=== PATIENT | female | born 1975 | race African-American/Black ===

== ENCOUNTER 2024-12-29 04:23 | Observation (INO) | payer OTHER, SELFPAY ==
[2024-12-28] VITALS (19 sets, daily range): BP systolic 111–149; BP diastolic 62–97; BMI 33.1
[2024-12-28 17:35] LABS: Hematocrit 43.4 % (37.0-47.0); Hemoglobin 14.9 g/dL (12.0-16.0); Mean Corp Hgb Conc. 34.3 g/dL (33.0-37.0); Mean Corpuscular Volume 103.3 fL (81.0-99.0); Nucleated Red Blood Cells % 0.3 %; Platelet Count 156 10^3/uL (130-400); Red Cell Dist. Width 16.8 % (11.5-14.5)
[2024-12-28 17:39] LABS: Glucose - Point of Care 134 mg/dl (70-99)
[2024-12-28 17:46] LABS: INR 1.34; PT 16.8 Sec (11.4-14.6)
[2024-12-28 17:47] LABS: APTT 28.2 Sec (23.4-35.0)
[2024-12-28] MEDS: NSS 1000 IV (18:00)
[2024-12-28 18:08] LABS: Urine Character Clear (Clear)
[2024-12-28 18:24] LABS: Urine Red Blood Cell 0-2 /HPF (0-2); Urine Urothelial Cell 0-2 /LPF (FEW)
[2024-12-28 19:45] LABS: Beta HCG Quantitative < 2.39 mIU/ml
[2024-12-28 20:01] LABS: ALT (SGPT) 39 U/L (0-35); AST (SGOT) 125 U/L (14-36); Acetaminophen < 10 ug/ml (10-30); Albumin 4.1 g/dl (3.5-5.0); Alkaline Phosphatase 97 U/L (38-126); Blood Urea Nitrogen 2 mg/dl (7-17); Calcium 7.6 mg/dl (8.4-10.2); Carbon Dioxide 34 mmol/L (22-30); Chloride 103 mmol/L (98-107); Estimated Creatinine Clearance 118 ml/min; Glucose 93 mg/dl (70-99); Potassium 3.4 mmol/L (3.5-5.1); Salicylate < 1.0 mg/dl (2.0-20.0); Sodium 145 mmol/L (135-145); Total Protein 7.6 g/dl (6.3-8.2); eGFR > 60.00
[2024-12-29] VITALS: BP 131/81
[2024-12-29 01:00] VITALS: BP 137/91
[2024-12-29 02:00] VITALS: BP 124/88
--- NOTE | 2024-12-29 02:13 | ED.GENMED ---
History of Present Illness
General
Chief Complaint: Overdose Unintentional
Source: patient, family and ambulance crew
Exam Limitations: altered mental status
Time Seen by Provider: 12/28/24 17:13
Nursing documentation reviewed up to this point in time: agreed with
History of Present Illness
History of Present Illness:
Note:
CHIEF COMPLAINT(S)
Altered mental status and potential head injury.
HISTORY OF PRESENT ILLNESS
The patient is a 49-year-old female who presented with altered mental status. There is a history of alcohol consumption today, and the patient reported consuming a significant amount, though the exact quantity is unspecified. Additionally, the
patient admitted to using a THC gummy earlier today. The patients mental status appears altered, possibly related to substance use. When questioned about a potential head injury, the patient acknowledged that she might have hit her head but was
uncertain about the details. There is no history of diabetes. The patients past medical history includes brain surgery, the specifics of which are unclear, but it is noted that cancer was not involved.
ADDITIONAL HISTORY OBTAINED FROM SOURCES OTHER THAN THE PATIENT
The EMS team reported that the patients phone and wallet were left at her residence. It remains uncertain who initiated the 911 call. According to the patient, a 'Jaycob' was mentioned, but no further details about this individual were provided.
SOCIAL DETERMINANTS AFFECTING HEALTH
The patient has reported the use of both alcohol and THC gummies, which may have influenced her current condition.
PHYSICAL EXAM
General: Alert, no acute distress.
Skin: Warm, dry.
Head: Normocephalic, atraumatic, though the patient suggests a potential head injury.
Neck: Supple, trachea midline.
Eye, Ears, Nose, Mouth and Throat: Oral mucosa moist.
Cardiovascular: Normal peripheral perfusion, no edema.
Respiratory: Respirations are non-labored.
Gastrointestinal: Abdomen nondistended.
Back: Normal range of motion, normal alignment.
Musculoskeletal: Normal range of motion, normal strength.
Neurological: Alert and oriented to person, place, time, and situation, no focal neurological deficit observed, though some altered mental status noted.
Psychiatric: Cooperative, appropriate mood & affect.
PLAN
Further evaluation of the patients altered mental status, potentially related to substance use, is warranted. Consider imaging to assess for possible head injury. Monitor vital signs and re-evaluate mental status closely.
DIFFERENTIAL DIAGNOSIS
The Differential Diagnosis includes, in no particular order and is not limited to:
1. Alcohol intoxication
2. THC intoxication
3. Substance-induced delirium
4. Traumatic brain injury
5. Concussion
6. Hypoglycemia
7. Electrolyte imbalance
8. Infection (e.g., urinary tract infection, pneumonia)
9. Stroke
10. Seizure
CARE-UPDATE
12/28/24 - 20:22
CT scan of the head indicates a prior left partial craniotomy with left parietal encephalomalacia and adjacent dural thickening. No signs of acute intracranial abnormalities were observed.
CARE-UPDATE
12/28/24 - 21:22
Patient experiences persistent desaturation when not supported by supplemental oxygen; observation to continue.
Disposition:
SUMMARY OF ENCOUNTER
A 49-year-old female presented to the emergency department with altered mental status and potential head injury, likely due to substance use including THC gummies and alcohol consumption. She consumed two THC gummies, whereas the instructions were
to consume only one-quarter of a gummy, and a significant, unspecified amount of alcohol. The patients mental status has improved to alert and oriented, and it appears the altered state is associated with substance-induced effects.
DISPOSITION
Discharge to home.
ASSESSMENT
Acute THC overdose and alcohol intoxication.
PLAN
The patient will be discharged home with instructions to avoid further substance use and monitor symptoms.
MEDICATION RECONCILIATION
None administered or prescribed during the visit.
MEDICAL DECISION MAKING
-Complexity of Data Reviewed: Chronic conditions affecting care include the patient�s history of brain surgery and potential head injury. DDx: Alcohol intoxication, THC intoxication, substance-induced delirium, traumatic brain injury, concussion,
hypoglycemia, electrolyte imbalance, infection, stroke, seizure.
-Data:
Category 2
Clinical information was obtained from an independent historian, as the EMS team reported details of the patient�s situation, including leaving her phone and wallet at home.
-Risk: Prescription medication was discussed but not prescribed due to the improvement in the patient�s condition and discharge plan.
DIAGNOSIS
1. Acute THC overdose - ICD-10 code T40.7X1A
2. Alcohol intoxication - ICD-10 code F10.129
Review of Systems
Review of Systems
Allergies reviewed?: Yes
All Other Systems: ROS reviewed and negative except as documented in HPI and ROS
Phy Exam
General Physical Exam
General Presentation: mild distress
General age: appears stated age
General Skin: warm
General Habitus: normal
General Mental: alert
General Hydration: appears well hydrated
ENT Exam
ENT Exam: EOMI, pharynx normal, neck supple and normocephalic
Eye Exam
Eye Exam: PERRL, cornea clear and conjunctiva normal
Cardiovascular Exam
Cardiovascular Exam: regular rate/rhythm
Pulmonary Exam
Pulmonary Exam: lungs clear and no respiratory distress
Oxygen Status: oxygen 2 liters via NC
Gastrointestinal Exam
Gastrointestinal Exam: normal bowel sounds, non tender, soft, no organomegaly, no pulsatile mass and non distended
Neurological Exam
Neurological Exam: alert and oriented x3 ( at time of disposition she is awake alert and oriented x 3. She has gradually improved throughout her stay here in the ER)
Musculoskeletal Exam
Musculoskeletal Exam: full ROM and neck pain
Skin Exam
Skin Exam: normal color and warm/dry
Psychiatric Exam
Psychiatric Exam: normal mood/affect
Course
Orders/Labs/Results
Orders:
Orders
12/28/24 17:13
CT Head W/o Iv Contrast Urgent
Comment:
Reason For Exam: found unresponsive, poss hx of brain surg, OD
12/28/24 17:14
Bedside Glucose- Treatment ONCE
0.9% Sodium Chloride 1000 ml [Nss] 1,000 ml IV BOLUS
Test Result ONCE
12/28/24 17:18
Complete Blood Count/With Diff Urgent
PTT Urgent
Prothrombin Time Urgent
12/28/24 18:01
Fentanyl, Urine Urgent
Urinalysis Reflex To Culture Urgent
Date Specimen was Collected: 12/28/24
Time Specimen was Collected: 17:59
Urine Drug Abuse Screen Urgent
Date Specimen was Collected: 12/28/24
Time Specimen was Collected: 17:59
Urine Microscopic Reflex Cult Urgent
12/28/24 18:49
Beta HCG Quantitative Urgent
12/28/24 19:33
Acetaminophen Urgent
Alcohol Urgent
Comprehensive Metabolic Panel Urgent
Salicylate Urgent
12/29/24 02:37
CR Chest - 2 Views Urgent
Comment:
Reason For Exam: dyspnea
Abnormal Lab Results
12/28/24 12/28/24 12/28/24
17:18 17:38 18:01
MCV 103.3 H fL
(81.0-99.0)
MCH 35.5 H pg
(27.0-31.0)
RDW 16.8 H %
(11.5-14.5)
PT 16.8 H Sec
(11.4-14.6)
Potassium
Carbon Dioxide
BUN
Calcium
AST
ALT
Urine Albumin (Reflex) 2+ A
(Neg - Trace)
Salicylates
Acetaminophen
U Benzodiazepines Scrn Positive H
(Negative)
U Marijuana (THC) Screen Positive H
(Negative)
POC Glucose 134 H mg/dl
(70-99)
12/28/24
19:33
MCV
MCH
RDW
PT
Potassium 3.4 L mmol/L
(3.5-5.1)
Carbon Dioxide 34 H mmol/L
(22-30)
BUN 2 L mg/dl
(7-17)
Calcium 7.6 L mg/dl
(8.4-10.2)
AST 125 H U/L
(14-36)
ALT 39 H U/L
(0-35)
Urine Albumin (Reflex)
Salicylates < 1.0 L mg/dl
(2.0-20.0)
Acetaminophen < 10 L ug/ml
(10-30)
U Benzodiazepines Scrn
U Marijuana (THC) Screen
POC Glucose
12/28/24 17:18
12/28/24 19:33
Vital Signs
Initial and Last Documented VS:
Initial Vital Signs
Temp Pulse Resp BP Pulse Ox
97.5 F 89 15 123/97 67
12/28/24 17:13 12/28/24 17:13 12/28/24 17:13 12/28/24 17:13 12/28/24 17:13
Last Documented Vital Signs
Temp Pulse Resp BP Pulse Ox
97.5 F 60 14 137/91 95
12/28/24 17:13 12/29/24 01:15 12/29/24 01:15 12/29/24 01:00 12/29/24 02:17
*Radiology
Radiology exam reviewed: radiology read reviewed
*Pulse Oximetry
SaO2: 95
Nasal Cannula flow liters per minute: 4
Oxygen Mode of Delivery: Room air
Patient hypoxic: yes ( on room air)
*Critical Care Note
Total Time (30-74mins, 75-104mins- exclusive of procedures): 32 ( Critical care statement: A total of 32 minutes of critical care time was provided for this patient. This time is separate from time utilized to perform the aforementioned documented
procedures. Aggregate critical care time includes only time during which I was engaged in work direct)
Update Note
Update Note:
12/29/2024 0213 AM: Patient is awake alert and oriented. Will ambulate
12/29/2024 0240 AM: Patient still awake alert and oriented. After ambulation. Her oxygen level has decreased. She still requires supplemental O2 to maintain an SpO2 greater than 92%. Will admit to the hospitalist service after x-ray.
ED Attending Note
-
Portions of this chart may have been created with voice recognition software.� Occasional wrong word or��sound alike� substitutions may have occurred due to the inherent limitations of voice recognition software.
Discharge Plan
Departure
Patient Disposition: Admit
Date of Disposition: 12/29/24
Time of Disposition: 02:17
Admit to: Telemetry
Presentation/result/management discussed w/ accepting MD/DO: Hospitalist
Patient with high blood pressure during this ER visit?: Yes
Condition: Good
Discharge Problem:
THC overdose, Alcohol use, Accidental overdose, Acute dyspnea
Instructions: Accidental Overdose (DC), BLOOD PRESSURE
Referrals:
[facility] [Outside]
Alfredito Masters MD [Family Provider, Family Practice]
Activity Restrictions/Additional Instructions:
Thank You for choosing [facility].
It was a pleasure meeting you and taking part in your care. We hope for your continued healing and wellness.
Please read discharge instructions in their entirety. However, they are for general education and may not describe your exact diagnosis at discharge. Information on your ER visit and medical conditions were discussed with you along with appropriate
follow up information...
If indicated, please take your medications as instructed and indicated on discharge paperwork.
Please schedule a follow up appointment as directed. Call to schedule an appointment
Please return to the emergency department with ANY change in, persisting, or worsening of symptoms. If any of your symptoms do not improve, or persist, or become more severe within 6-12 hours, please return to the emergency department for further
care.
Please return to the emergency department if you develop a headache, neck pain/stiffness, fever greater than 100.4F, chest pain, shortness of breath, persistent nausea, vomiting, slurred speech, difficulty walking, numbness/tingling, weakness, signs
of infection or any other symptoms that are worrisome to you.
If you have any questions or concerns please do not hesitate to call the Hospital at
Interventions
Interventions:
*Risk Screen - Suicide Last Done: 12/28/24 17:28
*General Assessment Last Done: 12/28/24 17:27
*Neglect/Abuse Screening Last Done: 12/28/24 17:28
*ED- Fall Risk Assessment Last Done: 12/28/24 17:27
*ED COVID-19 Vaccine History Last Done: 12/28/24 17:27
ED- Cardiac Assessment Last Done: 12/28/24 17:28
ED- Neurological Assessment Last Done: 12/28/24 17:28
ED-Psychological Assessment Last Done: 12/28/24 17:28
ED- Pulmonary Assessment Last Done: 12/28/24 17:28
Discharge Date and Time
Print Language: FRENCH
--- NOTE | 2024-12-29 03:57 | HPS.HSE ---
Family Physician
-
Family Physician: Alfredito Masters MD
Chief Complaint
-
Accidental THC overdose
History of Present Illness
This is a 49-year-old female with past medical history significant for hypothyroid, anxiety, hypertension, osteoarthritis status post left knee replacement who presents to the emergency department in unresponsive state after ingestion of alcohol and
cannabis Gummies.
According to spouse patient had drank about half a cup of vodka x 2. She also had an unusual amount of cannabis Gummies containing about 7 g of THC which is different from the brand that usually takes. Is unsure if she had anything else with that.
Then when he came to examine her patient was unresponsive. They had been eating pizza just prior to this episode. He attempted sternal rub and she did not wake up so EMS was called. He did give her a number of compressions although he did not
never check but it was pulse or not. By EMS patient was breathing spontaneously on the arrival. She was transferred to the emergency department where she was arousable.
In the emergency department she was thought to be in acute intoxication and was and monitored after labs and vitals were stable. After several hours patient was felt to be improving and there was an attempt to discharge the patient. However with
ambulation the patient was desatting to the 80s. She had to be placed on oxygen and has remained on supplemental oxygen since.
In the ED blood pressure was 124/88 with a pulse rate in the 50s and she was satting 96% on 3 L currently. She was afebrile. CBC was unremarkable. And there is microcytosis on the MCV. She had a sodium of 3.4 bicarb of 34 otherwise electrolytes
were unremarkable, BUN and creatinine were 2 and 0.4. She had slight elevations in LFTs with with AST in the 120s and ALT is in the 80s. Drug screen was positive for benzos THC and alcohol. It was negative for Tylenol and other drugs. Chest
x-ray is clear. ECG is nonischemic.
Medical History
Past Medical History
Past Medical History: Reports HTN, Hypothyroidism, Psychiatric (Anxiety) and Other (Osteoarthritis)
Past Surgical History: Reports Orthopedic (The left total knee arthroplasty)
Social History
Tobacco: Smoker
Alcohol: Binge drinker
Drug: Marijuana
Personal:
Family History
Family History: Not pertinent
Allergies / Home Medications
Allergies reflects when Allergies were last updated in [employer].
Home Medications with original date entered in [employer]
Allergy/Medication List:
Allergies
Allergy/AdvReac Type Severity Reaction Status Date / Time
banana Allergy Unknown Verified 12/28/24 17:36
nut - unspecified Allergy Unknown Verified 12/28/24 17:36
Home Medications
buspirone 15 mg tablet 15 mg PO BID 12/29/24
escitalopram oxalate 20 mg tablet 20 mg PO DAILY 12/29/24
escitalopram oxalate 5 mg tablet 5 mg PO DAILY 12/29/24
levothyroxine 100 mcg tablet 100 mcg PO DAILY 12/29/24
lisinopril 30 mg tablet 30 mg PO DAILY 12/29/24
trazodone 150 mg tablet 150 mg PO HS 12/29/24
Review of Systems
-
Unable to obtain full review of systems at this time due to: Acuity
Physical Exam
Vital Signs
Vital Signs
Temp Pulse Resp BP Pulse Ox
97.5 F 65 15 124/88 96
12/28/24 17:13 12/29/24 03:30 12/29/24 03:30 12/29/24 02:00 12/29/24 03:30
Physical Exam
General: Well Developed, Well Nourished and No Apparent Distress
HEENT: NormoCephalic, Moist mucous membranes, Atraumatic and Oxygen
Respiratory: Clear
Cardiac: S1/S2 and Regular Rhythm; No Murmur or Rub
GI: Soft, Non Tender, Non Distended and Normal Bowel Sounds; No Organomegaly
Rectal: Deferred by Provider
Musculoskeletal: No Clubbing, No Cyanosis and No Edema
Skin: No Rash
Neuro: Nonfocal/grossly intact
Laboratory Results
-
12/28/24 17:18
12/28/24 19:33
Laboratory Results
PT 16.8 Sec (11.4-14.6) H 12/28/24 17:18
INR 1.34 12/28/24 17:18
APTT 28.2 Sec (23.4-35.0) 12/28/24 17:18
Total Bilirubin 0.9 mg/dl (0.2-1.3) 12/28/24 19:33
AST 125 U/L (14-36) H 12/28/24 19:33
ALT 39 U/L (0-35) H 12/28/24 19:33
Alkaline Phosphatase 97 U/L (38-126) 12/28/24 19:33
Data Reviewed
-
Diagnostic Radiology: Image Personally Visualized and interpreted
Lab Data: Labs Reviewed by me
Old Records: Reviewed
Impression/Plan
-
IMPRESSION:
49-year-old female with past medical history of anxiety depression, presents to the emergency department after being found unresponsive in the setting of an acute overdose with THC as well as alcohol intoxication and possibly benzo overdose.
Patient drug screen was positive for benzos THC use and EtOH. She had been apparently taking extra dose of THC. She also drank to have glasses of vodka. She appeared to have recovered well in the ED but on attempted discharge she was found to
require supplemental oxygen. Chest x-ray was clear. She had no chest pain. She had a prior left total knee arthroplasty a year ago and shows no signs of calf tenderness or edema.
PLAN:
Hypoxia -suspect secondary to somnolence and atelectasis. Chest x-ray shows no acute infiltrate suggestive of aspiration or any other pneumonia. He has no prior history of hypoxic respiratory disease. She does smoke tobacco daily
-Admit to [facility] observation
-Incentive spirometry every hour
-Nebs every 4 hours
-Ambulate with pulse oximetry in a.m.
-Will obtain D-dimer with a.m. lab
-No prior history of alcohol withdrawal, will avoid withdrawal protocol for now and plan to discharge in the morning
Transaminitis -no ratio consistent with alcohol but cannot rule out fatty liver. She does have elevated MCV and low potassium level consistent with some degree of chronic alcohol use. No pain no abdominal discomfort, normal bilirubin
- Trend LFTs
- lipid panel
- folate/b12 levels
- Right upper quadrant ultrasound in a.m, can get as outpatient if delays discharge
DVT prophylaxis�SCDs
CODE STATUS�full code
[2024-12-29 07:34] VITALS: BP 143/96
--- NOTE | 2024-12-29 08:00 | PTCARENOTE ---
Patient arrived to unit via stretcher accompanied by ED PCT and friend. Patient ambulated self to bathroom and bed without difficulty. Patient drowsy but Ox3. Walking pulse ox performed by RT, Home O2 assessment performed by RN. See worklist for
documentation.
~1000 Patient requested to leave and does not want to stay in hospital. Hospitalist made aware.
[2024-12-29 08:09] VITALS: BP 155/96; BMI 30.8
[2024-12-29] MEDS: DUONEB 3 ML INH (08:10)
[2024-12-29 08:15] VITALS: O2SAT 96
[2024-12-29] MEDS: SYNTHROID 100 MCG PO (09:28)
[2024-12-29] MEDS: KCL ELIXIR 40 MEQ PO (09:28)
[2024-12-29] MEDS: LEXAPRO 5 MG PO (09:28)
[2024-12-29] MEDS: ZESTRIL 30 MG PO (09:28)
[2024-12-29] MEDS: LEXAPRO 20 MG PO (09:28)
[2024-12-29] MEDS: BUSPAR 15 MG PO (09:28)
--- NOTE | 2024-12-29 11:07 | CM ---
Patient seen bedside w/ friend, initial assessment completed. Patient is a 49-year-old female with past medical history significant for hypothyroid, anxiety, hypertension, osteoarthritis status post left knee replacement who presents to the
emergency department in unresponsive state after ingestion of alcohol and cannabis Gummies.
Patient resides alone in a 1st floor apartment, no steps to enter. Patient is independent in all areas. No therapy hx, no medical equipment reported.
Address, no point of contact listed, insurance verified
PCP: Alanna Romero
Pharmacy: [facility]
Patient admitted obs status. OOBS form verbally reviewed, copy provided, copy on chart
Per hospitalist, patient will likely d/c today
Plan: Home, no needs
[2024-12-29] MEDS: DUONEB INH (11:17)
--- NOTE | 2024-12-29 11:40 | W.PN.HOSP.TC ---
Addendum entered and electronically signed by Gwyn Granados MD 12/29/24 14:21:
[id number]
Original Note:
Today's Communication/Plan
-
patient leaving ama
f/u pulm, pcp, and pfts outpt
Assessment / Plan
Assessment / Plan
Physical Exam
General: Well Developed, Well Nourished and No Apparent Distress
HEENT: NormoCephalic, Moist mucous membranes, Atraumatic and Oxygen
Respiratory: Clear
Cardiac: S1/S2 and Regular Rhythm; No Murmur or Rub
GI: Soft, Non Tender, Non Distended and Normal Bowel Sounds; No Organomegaly
Rectal: Deferred by Provider
Musculoskeletal: No Clubbing, No Cyanosis and No Edema
Skin: No Rash
Neuro: Nonfocal/grossly intact
49-year-old female with past medical history of anxiety depression, presents to the emergency department after being found unresponsive in the setting of an acute overdose with THC as well as alcohol intoxication and possibly benzo overdose.
Patient drug screen was positive for benzos THC use and EtOH. She had been apparently taking extra dose of THC. She also drank to have glasses of vodka. She appeared to have recovered well in the ED but on attempted discharge she was found to
require supplemental oxygen. Chest x-ray was clear. She had no chest pain. She had a prior left total knee arthroplasty a year ago and shows no signs of calf tenderness or edema.
PLAN:
Hypoxia -suspect secondary to somnolence and atelectasis. Chest x-ray shows no acute infiltrate suggestive of aspiration or any other pneumonia. He has no prior history of hypoxic respiratory disease. She does smoke tobacco daily
-Still slightly hypoxic upon ambulation, no wheezing - came back to 97% on her own
-No prior history of alcohol withdrawal, will avoid withdrawal protocol for now and plan to discharge in the morning
-Benefits from PFTs outpt
-F/u pulm and PCP outpatient
Transaminitis -no ratio consistent with alcohol but cannot rule out fatty liver. She does have elevated MCV and low potassium level consistent with some degree of chronic alcohol use. No pain no abdominal discomfort, normal bilirubin
- No abd pain
-Can f/u US outpt
DVT prophylaxis�SCDs
CODE STATUS�full code
More than 30 minutes spent in discharge including
Final examination of the patient
Summarizing hospital stay
Instructions for continuing care to all relevant caregivers
Preparation of discharge records, prescriptions, and referral forms
Total time spent (in minutes): 36
Anticipated Discharge: Today
Subjective/Interval History
-
Date of Service: December 29, 2024
still hypoxic upon ambulation, no wheezing
Objective Data
-
Vital Signs:
Vital Signs
Temp Pulse Resp BP Pulse Ox
97.8 F 68 15 155/96 94
12/29/24 08:09 12/29/24 08:15 12/29/24 08:15 12/29/24 08:09 12/29/24 09:45
Review of Systems
-
History Source: Patient
All other systems: Not reviewed unless documented
Data Reviewed
-
Labs: Labs Reviewed by me
--- NOTE | 2024-12-29 11:49 | W.DS.TRANS ---
DC Summary - Political Worker
-
Discharge Instructions:
Discharge Diagnosis/Procedures hypoxia
Blood Work cbc and bmp outpatient
Others Tests PFTs outpatient
Instructions:
Stand-Alone Forms:
Changes to Home Medications: No
Discharge Medications:
DC Medications w/original date entered in [facility]
buspirone 15 mg tablet 15 mg PO BID 12/29/24
escitalopram oxalate 20 mg tablet 20 mg PO DAILY 12/29/24
escitalopram oxalate 5 mg tablet 5 mg PO DAILY 12/29/24
levothyroxine 100 mcg tablet 100 mcg PO DAILY 12/29/24
lisinopril 30 mg tablet 30 mg PO DAILY 12/29/24
trazodone 150 mg tablet 150 mg PO HS 12/29/24
Home Medication Changes
na
Pending Results: No
--- NOTE | 2024-12-29 11:49 | PTCARENOTE ---
Patient signed AMA form and left with friend, escorted out via wheelchair. IV's removed at this time.
== END 2024-12-29 11:50 | disposition left against medical advice (07) ==
LOC: 4 WEST ACU 04:23
PROVIDERS: ADMITTING PHYSICIAN Internal Medicine; ATTENDING PHYSICIAN Internal Medicine; EMERGENCY PHYSICIAN Student in an Organized Health Care Education/Training Program; FAMILY PHYSICIAN Family Medicine
DX: R41.82 Altered mental status, unspecified (principal); R09.02 Hypoxemia; F10.129 Alcohol abuse with intoxication, unspecified; F12.929 Cannabis use, unspecified with intoxication, unspecified; T40.711A Poisoning by cannabis, accidental (unintentional), initial encounter; R06.00 Dyspnea, unspecified; M19.90 Unspecified osteoarthritis, unspecified site; I11.9 Hypertensive heart disease without heart failure; E03.9 Hypothyroidism, unspecified; F41.9 Anxiety disorder, unspecified; R71.8 Other abnormality of red blood cells; Y90.9 Presence of alcohol in blood, level not specified; F17.200 Nicotine dependence, unspecified, uncomplicated; F32.A Depression, unspecified; R74.01 Elevation of levels of liver transaminase levels; G93.89 Other specified disorders of brain; Z91.018 Allergy to other foods; Z79.890 Hormone replacement therapy; Z79.899 Other long term (current) drug therapy; Z96.652 Presence of left artificial knee joint; Z53.29 Procedure and treatment not carried out because of patient's decision for other reasons
CPT/HCPCS: 70450; 71046; 80053; 80143; 80179; 80306; 80307; 81003; 81015; 82077; 82962; 84702; 85025; 85610; 85730; 94640; 96360; 99291; G0378

== ENCOUNTER 2025-04-06 19:21 | Emergency (ER) | payer OTHER, SELFPAY ==
[2025-04-06 19:30] VITALS: BP 166/128
[2025-04-06 19:31] VITALS: BP 166/128
--- NOTE | 2025-04-06 20:01 | ED.GENMED ---
History of Present Illness
General
Chief Complaint: Numbness
Source: patient
Time Seen by Provider: 04/06/25 19:26
History of Present Illness
History of Present Illness:
This patient is a 49-year-old female presents emergency department with multiple complaints. She states that she felt constipated and and started a hemorrhoid cream in her rectum approximately 2 days ago. She says ever since then she has noted
that she has had swelling of her lower lip. She denies throat tightness, dyspnea, trouble swallowing, drooling, change in voice. This has been intermittent. She also notes that she is having tingling and numbness intermittently in her hands,
waxing and waning in intensity, particularly today. She describes going out shopping earlier today and when she came home and tried to lift something up she felt like she could not really feel anything in her whole body, blood particularly
bilateral hands. She denies dizziness, change in gait, focal weakness, change in speech, change in vision, headache, neck pain, recent trauma. She said that she had 2 episodes of vomiting earlier in the week. Overall she has anorexia.. She
admits to drinking vodka today, and has also started taking Benadryl somewhat frequently in the last 24 hours given the lip swelling.
Past History
Past History
ED Past Medical History: Other (TBI, hypertension)
Social History
Tobacco: Smoker
Alcohol: Daily
Drug: Marijuana
Personal: Single
Living: alone
Phy Exam
Physical Exam
Physical Exam:
GENERAL: Alert , in no apparent distress
EYE: pupils equal and reactive, no photophobia, no nystagmus, EOMI
NECK: Supple, no significant adenopathy.
ENT: o/p clr, mmm.
CARDIAC: Regular rate and rhythm .
LUNGS: Clear breath sounds bilaterally, no acute respiratory distress, no wheezes/rales/rhonchi
ABDOMEN: Soft, without focal tenderness, no r/g, no cvat
NEUROLOGICAL: Alert and oriented, appears intoxicated with slightly slurred speech, otherwise neurovascularly intact, [id number] normal, motor 5 out of 5, sensory intact to light touch, cranial nerves II through XII intact
SKIN: Warm and dry, skin intact.
MUSCULOSKELETAL: No edema, well perfused.
PSYCH: Normal and appropriate interaction.
Course
Orders/Labs/Results
Orders:
Orders
04/06/25 19:52
Electrocardiogram (*1) Stat
Reason for Study: Other
Other Reason for Exam: neuro symptoms
CT Head W/o Iv Contrast Urgent
Comment:
Reason For Exam: numbness
Cardiac Monitoring- Treatment ONCE
EKG- Treatment ONCE
04/06/25 19:58
Alcohol Urgent
Basic Metabolic Panel Urgent
Complete Blood Count/No Diff Urgent
04/06/25 21:04
Troponin I Urgent
Abnormal Lab Results
04/06/25
19:58
Hgb 16.9 H g/dL
(12.0-16.0)
Hct 47.1 H %
(37.0-47.0)
MCV 101.3 H fL
(81.0-99.0)
MCH 36.3 H pg
(27.0-31.0)
RDW 15.9 H %
(11.5-14.5)
Plt Count 127 L 10^3/uL
(130-400)
Sodium 134 L mmol/L
(135-145)
Chloride 93 L mmol/L
(98-107)
Carbon Dioxide 34 H mmol/L
(22-30)
BUN 2 L mg/dl
(7-17)
04/06/25 19:58
04/06/25 19:58
Vital Signs
Initial and Last Documented VS:
Initial Vital Signs
Temp
97.9 F
04/06/25 19:25
Last Documented Vital Signs
Temp Pulse Resp BP Pulse Ox
97.9 F 72 15 148/93 91
04/06/25 19:25 04/06/25 23:11 04/06/25 23:11 04/06/25 23:11 04/06/25 20:00
*Pulse Oximetry
Patient hypoxic: no
*Critical Care Note
Total Time (30-74mins, 75-104mins- exclusive of procedures): Not Applicable
Update Note
Update Note:
Patient presents to the Emergency Department with ____multiple complaints
Number and Complexity of Problems Addressed at the Encounter
� Chronic conditions affecting care:
� Acute Exacerbation and/or Progression of Chronic Illness:
� Differential Diagnosis includes: But not limited to unintentional overdose, medication effects, alcohol intoxication, TIA, electrolyte disorder, allergic reaction, etc. etc.
Amount and/or Complexity of Data to be Reviewed and Analyzed
� I performed an independent evaluation of and my interpretation is:
EKG: Read by me, normal sinus rhythm, normal rate, normal axis, no acute ischemia
CT: Read by radiology no acute changes
Xrays:
Laboratory Studies: Generally unremarkable
Other:
� Review of other/old records reveals: Discharge summary from December 2024 reviewed at that time patient was admitted secondary to an overdose of THC and alcohol.
� Clinical information was obtained by an independent historian:
� Prescriptions/Medications Considered but not given:
� Further testing considered but not performed:
Risk of Complications and/or Morbidity or Mortality of Patient Management
� Social determinants of health affecting care:
� Discussion with other providers (PCP, Hospitalists, Consultants, etc):
� Escalation of care including admission/observation vs risk of discharge considered: Clinically highly doubt acute CVA, patient not a TNK/MT candidate given only neurological finding is slurred speech which is likely related to
her alcohol intoxication.
11:35 PM patient noted to walk to the bathroom without difficulty. She is awake alert lucid. She describes a history of more subacute/chronic neuropathy like symptoms� States that since December she has been having a sensation like she is 'walking
on rocks' in her feet bilaterally associated with intermittent hand paresthesias. No slurred speech, facial droop, visual changes, focal weakness, vertigo, dizziness, or other associated symptoms. She is neurologically intact here. Her workup is
generally unremarkable. Recommendation is for patient to follow-up promptly with neurology for further evaluation.
ED Attending Note
-
Portions of this chart may have been created with voice recognition software.� Occasional wrong word or��sound alike� substitutions may have occurred due to the inherent limitations of voice recognition software.
Discharge Plan
Departure
Patient Disposition: Home (Routine Discharge)
Date of Disposition: 04/06/25
Time of Disposition: 23:37
Patient with high blood pressure during this ER visit?: Yes
Condition: Good
Discharge Problem:
Paresthesia
Instructions: Paresthesia (DC), BLOOD PRESSURE
Prescriptions:
No Action
levothyroxine 100 mcg tablet
100 mcg PO DAILY
trazodone 150 mg tablet
150 mg PO HS
lisinopril 30 mg tablet
30 mg PO DAILY
buspirone 15 mg tablet
15 mg PO BID
escitalopram oxalate 20 mg tablet
20 mg PO DAILY
escitalopram oxalate 5 mg tablet
5 mg PO DAILY
Referrals:
Jonathon Stone MD [Active, Neurology] - Next open appointment
NONE,* [Family Provider, Internal Medicine]
Activity Restrictions/Additional Instructions:
IF YOU DEVELOP SEVERE HEADACHE, NECK PAIN, CHEST PAIN, SHORTNESS OF BREATH, WEAKNESS, CHANGE IN SPEECH, CHANGE IN BALANCE, FACIAL DROOP, NEW OR WORSENING TINGLING/NUMBNESS, OR OTHER WORRISOME SIGNS, PLEASE RETURN TO THE ER IMMEDIATELY!
Interventions
Interventions:
*Risk Screen - Suicide Last Done: 04/06/25 19:25
*General Assessment Last Done: 04/06/25 19:25
*Neglect/Abuse Screening Last Done: 04/06/25 19:25
*ED- Fall Risk Assessment Last Done: 04/06/25 19:25
*ED COVID-19 Vaccine History Last Done: 04/06/25 19:25
*ED Influenza Vaccine History Last Done: 04/06/25 19:25
*Nursing Disposition Last Done: 04/06/25 23:41
ED- Neurological Assessment Last Done: 04/06/25 20:10
Discharge Date and Time
Discharge Date/Time: 04/06/25 23:50
Print Language: [place]
[2025-04-06 20:15] LABS: Hematocrit 47.1 % (37.0-47.0); Hemoglobin 16.9 g/dL (12.0-16.0); Mean Corp Hgb Conc. 35.9 g/dL (33.0-37.0); Mean Corpuscular Volume 101.3 fL (81.0-99.0); Platelet Count 127 10^3/uL (130-400); Red Cell Dist. Width 15.9 % (11.5-14.5)
[2025-04-06 20:41] LABS: Blood Urea Nitrogen 2 mg/dl (7-17); Calcium 8.5 mg/dl (8.4-10.2); Carbon Dioxide 34 mmol/L (22-30); Chloride 93 mmol/L (98-107); Glucose 81 mg/dl (70-99); Sodium 134 mmol/L (135-145); eGFR > 60.00
[2025-04-06 21:39] LABS: Troponin I 0.029 ng/ml
[2025-04-06 23:11] VITALS: BP 148/93
== END 2025-04-06 23:50 | disposition home or self-care (01) ==
LOC: EMR 19:21
PROVIDERS: EMERGENCY PHYSICIAN Emergency Medicine
DX: R20.2 Paresthesia of skin (principal); I10 Essential (primary) hypertension; F17.200 Nicotine dependence, unspecified, uncomplicated; Z87.820 Personal history of traumatic brain injury
CPT/HCPCS: 99284; 70450; 80048; 82077; 84484; 85027; 93005